=== PATIENT | male | born 1945 | race Two or more races ===

== ENCOUNTER 2020-06-30 11:34 | Inpatient (IN) | payer OTHER ==
[~2020-06-30] VITALS: Ht 177.8 cm; Wt 94.9 kg
[2020-06-30 12:23] LABS: HEMATOCRIT. 35.9 % (42.0-52.0); HEMOGLOBIN. 12.1 g/dL (14.0-18.0); MEAN CORPUSCULAR HEMOGLOBIN 25.4 pg (28.0-32.0); MEAN PLATELET VOLUME 8.3 fl (7.4-10.4); PLATELET 187 x1000/uL (130-400); RED BLOOD CELL COUNT 4.79 mill/uL (4.7-6.1)
[2020-06-30] MEDS ORDERED: PIPERACILLIN/TAZ 3.375G PREMIX 50 ML IV ONE (12:30)
[2020-06-30] MEDS ORDERED: DEXAMETHASONE 10 MG/ML VIAL IV ONE (12:30)
[2020-06-30 12:31] LABS: CHLORIDE 97 mEq/L (98-107)
[2020-06-30 12:34] LABS: PROTHROMBIN TIME 10.9 sec (9.6-11.0)
[2020-06-30 12:35] LABS: ETHANOL BLOOD < 10 mg/dL
[2020-06-30] MEDS ORDERED: SODIUM CHLORIDE 0.9% 250 ML IV ONE (12:45)
[2020-06-30] MEDS ORDERED: ALBUTEROL 6.7GM HFA INHALER ORI ONE (12:45)
[2020-06-30 12:46] LABS: PLATELET ESTIMATE NORMAL
[2020-06-30 16:52] LABS: CLARITY URINE CLEAR (CLEAR); COLOR URINE YELLOW (YELLOW); KETONES URINE TRACE (NEGATIVE); LEUKOCYTE ESTERASE URINE NEGATIVE (NEGATIVE); NITRITE URINE NEGATIVE (NEGATIVE); OCCULT BLOOD URINE 3+ (NEGATIVE); PROTEIN URINE 2+ (NEGATIVE); SPECIFIC GRAVITY URINE 1.019 (1.005-1.030); UROBILINOGEN URINE 0.2 E.U./dL (0.2-1.0)
[2020-06-30 17:13] LABS: *COCAINE SCREEN URINE NEGATIVE (NEGATIVE); CANNABINOID URINE SCREEN NEGATIVE (NEGATIVE); METHADONE URINE SCREEN NEGATIVE (NEGATIVE); OPIATES URINE SCREEN PRESUMTIVE POSITIVE (NEGATIVE); PHENCYCLIDINE URINE SCREEN NEGATIVE (NEGATIVE)
[2020-06-30 17:14] LABS: *AMPHETAMINES SCREEN URINE NEGATIVE (NEGATIVE); *BARBITURATES SCREEN URINE NEGATIVE (NEGATIVE); *BENZODIAZEPINES SCREEN URINE NEGATIVE (NEGATIVE)
[2020-06-30] MEDS ORDERED: HYDROCODONE/ACETAMINOPHEN 5/325MG TABLET PO PRN (20:00)
[2020-06-30] MEDS ORDERED: ALBUTEROL 6.7GM HFA INHALER ORI PRN (20:00)
[2020-06-30] MEDS ORDERED: DIPHENHYDRAMINE 50MG/ML VIAL IV PRN (20:00)
[2020-06-30] MEDS ORDERED: GUAIFENESIN 200MG/10ML SUGAR FREE UDC PO PRN (20:00)
[2020-06-30] MEDS ORDERED: BENZONATATE 200MG CAPSULE PO PRN (20:00)
[2020-06-30] MEDS ORDERED: DEXTROSE 50% WATER 50ML SYRINGE IV PRN (20:00)
[2020-06-30] MEDS ORDERED: ACETAMINOPHEN 325MG TABLET PO PRN (20:00)
[2020-06-30] MEDS ORDERED: MAGNESIUM/ALUMINUM HYDROXIDE/SIMETHICONE 30ML UDC PO PRN (20:00)
[2020-06-30] MEDS ORDERED: ONDANSETRON HCL 4MG/2ML INJ IV PRN (20:00)
[2020-06-30] MEDS: SODIUM CHLORIDE 0.9% 1,000 ML IV SCH (20:38)
[2020-06-30] MEDS ORDERED: CEFTRIAXONE 1 G PREMIX 50 ML IV SCH (21:00)
[2020-06-30] MEDS: BLOOD SUGAR DIAGNOSTIC STRIP TEST SCH (21:25)
[2020-06-30] MEDS: GUAIFENESIN 600MG ER TABLET PO SCH (21:28)
[2020-06-30] MEDS: INSULIN LISPRO 100 UNITS/ML SUBCUT SCH (21:28)
[2020-06-30] MEDS: ENOXAPARIN 40MG/0.4ML SYR SUBCUT SCH (21:28)
[2020-06-30] MEDS: ATORVASTATIN CALCIUM 20MG TABLET PO SCH (21:28)
[2020-06-30] MEDS: FAMOTIDINE 20MG TABLET PO SCH (21:28)
[2020-06-30] MEDS: INSULIN GLARGINE UD 100 UNITS/ML SYR SUBCUT SCH (23:12)
[2020-06-30] MEDS: ERGOCALCIFEROL 50000UNITS CAPSULE PO SCH (23:12)
[2020-07-01 00:38] LABS: CREATINE KINASE 6960 IU/L (39-308)
[2020-07-01] MEDS: AZITHROMYCIN 500 MG in DEXT 5% WATER 250 ML IV SCH (02:00)
[2020-07-01] MEDS: BLOOD SUGAR DIAGNOSTIC STRIP TEST SCH ×4 (06:50→21:00)
[2020-07-01] MEDS: INSULIN LISPRO 100 UNITS/ML SUBCUT SCH ×3 (07:10→18:40)
[2020-07-01] MEDS: DEXAMETHASONE 10 MG/ML VIAL IV SCH (09:55)
[2020-07-01] MEDS: SODIUM CHLORIDE 0.9% 1,000 ML IV SCH (09:56)
[2020-07-01] MEDS: GUAIFENESIN 600MG ER TABLET PO SCH (09:56)
[2020-07-01] MEDS: LOSARTAN POTASSIUM 25 MG TABLET PO SCH ×2 (09:56→21:00)
[2020-07-01 10:58] LABS: HEMATOCRIT. 34.3 % (42.0-52.0); HEMOGLOBIN. 11.7 g/dL (14.0-18.0); MEAN CORPUSCULAR HEMOGLOBIN 25.5 pg (28.0-32.0); MEAN PLATELET VOLUME 8.6 fl (7.4-10.4); PLATELET 181 x1000/uL (130-400); RED BLOOD CELL COUNT 4.58 mill/uL (4.7-6.1); RED CELL DISTRIBUTION WIDTH 16.3 % (11.6-14.6)
[2020-07-01 11:03] LABS: CHLORIDE 102 mEq/L (98-107)
[2020-07-01 11:09] LABS: PHOSPHORUS 3.7 mg/dL (2.5-4.9)
[2020-07-01 11:32] LABS: CREATINE KINASE 5920 IU/L (39-308)
[2020-07-01 15:57] LABS: PLATELET ESTIMATE NORMAL
[2020-07-01 21:30] VITALS: BP 176/71
[2020-07-02] MEDS: ATORVASTATIN CALCIUM 20MG TABLET PO SCH ×2 (00:34→23:29)
[2020-07-02] MEDS: ZOLPIDEM TARTRATE 5MG TABLET PO PRN (00:34)
[2020-07-02] MEDS: GUAIFENESIN 600MG ER TABLET PO SCH ×3 (00:34→23:29)
[2020-07-02] MEDS: ENOXAPARIN 40MG/0.4ML SYR SUBCUT SCH ×2 (00:34→23:30)
[2020-07-02] MEDS: FAMOTIDINE 20MG TABLET PO SCH ×2 (00:34→23:29)
[2020-07-02] MEDS: CEFTRIAXONE 1,000 MG in DEXTROSE 5% WATER 50 ML IV SCH ×2 (01:30→23:28)
[2020-07-02] MEDS: SODIUM CHLORIDE 0.9% 1,000 ML IV SCH ×2 (01:30→14:53)
[2020-07-02] MEDS: INSULIN LISPRO 100 UNITS/ML SUBCUT SCH ×5 (01:31→23:30)
[2020-07-02] MEDS: BLOOD SUGAR DIAGNOSTIC STRIP TEST SCH ×4 (07:28→21:00)
[2020-07-02 08:00] VITALS: BP 140/80
[2020-07-02] MEDS: LOSARTAN POTASSIUM 25 MG TABLET PO SCH ×2 (11:29→23:31)
[2020-07-02] MEDS: DEXAMETHASONE 10 MG/ML VIAL IV SCH (11:29)
[2020-07-02 12:00] VITALS: BP 128/79
[2020-07-02 16:00] VITALS: BP 121/58
[2020-07-02 20:00] VITALS: BP 133/72
[2020-07-02] MEDS ORDERED: LISI10TA5 MT (20:23)
[2020-07-02] MEDS ORDERED: ASPI-1497 MT (20:23)
[2020-07-02] MEDS ORDERED: DORZ10DR17 OP (20:23)
[2020-07-02] MEDS ORDERED: GABA-532 MT (20:23)
[2020-07-02] MEDS ORDERED: ATOR40TA70 MT (20:23)
[2020-07-02] MEDS ORDERED: TIMO5DRO32 EACHEYE (20:23)
[2020-07-02] MEDS ORDERED: FURO20TA4 MT (20:23)
[2020-07-02] MEDS ORDERED: MUPI1OIN4 TP (20:23)
[2020-07-02] MEDS ORDERED: LORA10TA7 MT (20:23)
[2020-07-02] MEDS ORDERED: METF-416 MT (20:23)
[2020-07-02] MEDS ORDERED: SIME80TA15 MT (20:23)
[2020-07-02] MEDS: GABAPENTIN 300MG CAPSULE PO SCH (23:29)
[2020-07-03] VITALS (7 sets, daily range): BP systolic 113–171; BP diastolic 65–84
[2020-07-03] MEDS: SODIUM CHLORIDE 0.9% 1,000 ML IV SCH (01:20)
[2020-07-03] MEDS: AZITHROMYCIN 500 MG in DEXT 5% WATER 250 ML IV SCH (04:01)
[2020-07-03] MEDS: BLOOD SUGAR DIAGNOSTIC STRIP TEST SCH ×3 (07:01→21:00)
[2020-07-03] MEDS: INSULIN LISPRO 100 UNITS/ML SUBCUT SCH ×3 (08:10→21:00)
[2020-07-03] MEDS: DEXAMETHASONE 10 MG/ML VIAL IV SCH (09:00)
[2020-07-03] MEDS: GUAIFENESIN 600MG ER TABLET PO SCH ×2 (10:20→21:31)
[2020-07-03] MEDS: LOSARTAN POTASSIUM 25 MG TABLET PO SCH ×2 (10:20→21:31)
[2020-07-03] MEDS: INSULIN GLARGINE UD 100 UNITS/ML SYR SUBCUT SCH ×2 (10:21→22:00)
[2020-07-03] MEDS: FAMOTIDINE 20MG TABLET PO SCH (21:30)
[2020-07-03] MEDS: ATORVASTATIN CALCIUM 20MG TABLET PO SCH (21:31)
[2020-07-03] MEDS: ZOLPIDEM TARTRATE 5MG TABLET PO PRN (21:31)
[2020-07-03] MEDS: GABAPENTIN 300MG CAPSULE PO SCH (21:31)
[2020-07-03] MEDS: ENOXAPARIN 40MG/0.4ML SYR SUBCUT SCH (21:34)
[2020-07-04] VITALS: BP 132/66
[2020-07-04 04:00] VITALS: BP 123/49
[2020-07-04] MEDS: BLOOD SUGAR DIAGNOSTIC STRIP TEST SCH ×4 (07:40→20:21)
[2020-07-04 08:00] VITALS: BP 150/71
[2020-07-04] MEDS: INSULIN LISPRO 100 UNITS/ML SUBCUT SCH ×4 (08:10→23:46)
[2020-07-04] MEDS: DEXAMETHASONE 10 MG/ML VIAL IV SCH (09:17)
[2020-07-04] MEDS: GUAIFENESIN 600MG ER TABLET PO SCH ×2 (09:17→20:20)
[2020-07-04] MEDS: LOSARTAN POTASSIUM 25 MG TABLET PO SCH ×2 (09:17→20:20)
[2020-07-04 12:00] VITALS: BP 160/74
[2020-07-04] MEDS: ACETAMINOPHEN 325MG TABLET PO PRN (13:15)
[2020-07-04 16:00] VITALS: BP 167/76
[2020-07-04] MEDS: CLONIDINE 0.1MG TABLET PO PRN (18:15)
[2020-07-04 20:00] VITALS: BP 149/71
[2020-07-04] MEDS: GABAPENTIN 300MG CAPSULE PO SCH (20:20)
[2020-07-04] MEDS: FAMOTIDINE 20MG TABLET PO SCH (20:20)
[2020-07-04] MEDS: ATORVASTATIN CALCIUM 20MG TABLET PO SCH (20:20)
[2020-07-04] MEDS: ENOXAPARIN 40MG/0.4ML SYR SUBCUT SCH (20:21)
[2020-07-04] MEDS: INSULIN GLARGINE UD 100 UNITS/ML SYR SUBCUT SCH (23:47)
[2020-07-05] VITALS: BP 164/77
[2020-07-05] MEDS: CLONIDINE 0.1MG TABLET PO PRN ×3 (00:20→16:53)
[2020-07-05 04:00] VITALS: BP 157/89
[2020-07-05] MEDS: BLOOD SUGAR DIAGNOSTIC STRIP TEST SCH ×4 (06:01→21:00)
[2020-07-05] MEDS: INSULIN LISPRO 100 UNITS/ML SUBCUT SCH ×4 (08:10→21:00)
[2020-07-05] MEDS: DEXAMETHASONE 10 MG/ML VIAL IV SCH (09:00)
[2020-07-05] MEDS: GUAIFENESIN 600MG ER TABLET PO SCH ×2 (10:43→23:12)
[2020-07-05] MEDS: LOSARTAN POTASSIUM 25 MG TABLET PO SCH (10:43)
[2020-07-05] MEDS: QUETIAPINE FUMARATE 25MG TABLET PO SCH ×2 (10:44→23:12)
[2020-07-05] MEDS ORDERED: LORAZEPAM 2MG/ML CPJ IV PRN (10:45)
[2020-07-05 16:00] VITALS: BP 170/70
[2020-07-05 20:00] VITALS: BP 152/81
[2020-07-05] MEDS: ENOXAPARIN 40MG/0.4ML SYR SUBCUT SCH (21:00)
[2020-07-05] MEDS: ATORVASTATIN CALCIUM 20MG TABLET PO SCH (23:11)
[2020-07-05] MEDS: LOSARTAN POTASSIUM 50 MG TABLET PO SCH (23:12)
[2020-07-05] MEDS: FAMOTIDINE 20MG TABLET PO SCH (23:12)
[2020-07-05] MEDS: GABAPENTIN 300MG CAPSULE PO SCH (23:14)
[2020-07-05] MEDS: AMLODIPINE 5MG TABLET PO SCH (23:15)
[2020-07-05] MEDS: INSULIN GLARGINE UD 100 UNITS/ML SYR SUBCUT SCH (23:35)
[2020-07-06] VITALS: BP 137/73
[2020-07-06] MEDS: ACETAMINOPHEN 325MG TABLET PO PRN (01:11)
[2020-07-06 04:00] VITALS: BP 116/86
[2020-07-06 06:50] LABS: HEMATOCRIT. 38.4 % (42.0-52.0); HEMOGLOBIN. 12.6 g/dL (14.0-18.0); MEAN CORPUSCULAR HEMOGLOBIN 24.9 pg (28.0-32.0); MEAN CORPUSCULAR VOLUME 75.5 fL (80.0-94.0); MEAN PLATELET VOLUME 8.5 fl (7.4-10.4); PLATELET 157 x1000/uL (130-400); RED BLOOD CELL COUNT 5.08 mill/uL (4.7-6.1); RED CELL DISTRIBUTION WIDTH 16.8 % (11.6-14.6)
[2020-07-06 06:54] LABS: CHLORIDE 119 mEq/L (98-107)
[2020-07-06] MEDS: BLOOD SUGAR DIAGNOSTIC STRIP TEST SCH ×4 (06:54→21:34)
[2020-07-06 07:03] LABS: PHOSPHORUS 4.1 mg/dL (2.5-4.9)
[2020-07-06] MEDS: INSULIN LISPRO 100 UNITS/ML SUBCUT SCH ×4 (08:10→21:34)
[2020-07-06] MEDS: DEXAMETHASONE 10 MG/ML VIAL IV SCH (09:30)
[2020-07-06] MEDS: LOSARTAN POTASSIUM 50 MG TABLET PO SCH ×2 (09:31→21:00)
[2020-07-06] MEDS: GUAIFENESIN 600MG ER TABLET PO SCH ×2 (09:31→21:00)
[2020-07-06] MEDS: AMLODIPINE 5MG TABLET PO SCH ×2 (09:31→21:00)
[2020-07-06] MEDS: QUETIAPINE FUMARATE 25MG TABLET PO SCH ×2 (09:31→21:00)
[2020-07-06 12:00] VITALS: BP 138/61
[2020-07-06 16:00] VITALS: BP_SYST 108; BP_SYST 116; BP_DIAS 58; BP_DIAS 68
[2020-07-06] MEDS: DEXT 5%/0.45% NACL 1000ML 1,000 ML IV SCH (17:44)
[2020-07-06 18:02] LABS: PLATELET ESTIMATE NORMAL
[2020-07-06 20:00] VITALS: BP 123/63
[2020-07-06] MEDS: GABAPENTIN 300MG CAPSULE PO SCH (21:00)
[2020-07-06] MEDS: ATORVASTATIN CALCIUM 20MG TABLET PO SCH (21:00)
[2020-07-06] MEDS: FAMOTIDINE 20MG TABLET PO SCH (21:00)
[2020-07-06] MEDS: ENOXAPARIN 40MG/0.4ML SYR SUBCUT SCH (21:34)
[2020-07-06] MEDS: INSULIN GLARGINE UD 100 UNITS/ML SYR SUBCUT SCH (21:35)
[2020-07-07] VITALS: BP 121/66
[2020-07-07 04:00] VITALS: BP 121/63
[2020-07-07] MEDS: CEFEPIME 1,000 MG in DEXTROSE 5% WATER 50 ML IV SCH ×2 (04:16→21:41)
[2020-07-07] MEDS: BLOOD SUGAR DIAGNOSTIC STRIP TEST SCH ×4 (06:46→21:43)
[2020-07-07] MEDS: ERGOCALCIFEROL 50000UNITS CAPSULE PO SCH (09:37)
[2020-07-07] MEDS: DEXAMETHASONE 10 MG/ML VIAL IV SCH (09:37)
[2020-07-07] MEDS: LOSARTAN POTASSIUM 50 MG TABLET PO SCH ×2 (09:38→21:00)
[2020-07-07] MEDS: QUETIAPINE FUMARATE 25MG TABLET PO SCH ×2 (09:38→21:00)
[2020-07-07] MEDS: GUAIFENESIN 600MG ER TABLET PO SCH ×2 (09:38→21:00)
[2020-07-07] MEDS: AMLODIPINE 5MG TABLET PO SCH ×2 (09:38→21:00)
[2020-07-07] MEDS: INSULIN LISPRO 100 UNITS/ML SUBCUT SCH ×4 (09:39→21:42)
[2020-07-07 12:00] VITALS: BP 123/69
[2020-07-07] MEDS: DEXT 5%/0.45% NACL 1000ML 1,000 ML IV SCH (12:52)
[2020-07-07 16:00] VITALS: BP 134/66
[2020-07-07 20:00] VITALS: BP 131/63
[2020-07-07] MEDS: FAMOTIDINE 20MG TABLET PO SCH (21:00)
[2020-07-07] MEDS: GABAPENTIN 300MG CAPSULE PO SCH (21:00)
[2020-07-07] MEDS: ATORVASTATIN CALCIUM 20MG TABLET PO SCH (21:00)
[2020-07-07] MEDS: INSULIN GLARGINE UD 100 UNITS/ML SYR SUBCUT SCH (21:41)
[2020-07-07] MEDS: ENOXAPARIN 40MG/0.4ML SYR SUBCUT SCH (21:43)
[2020-07-08] VITALS: BP 110/57
[2020-07-08 04:00] VITALS: BP 133/66
[2020-07-08] MEDS: DEXT 5%/0.45% NACL 1000ML 1,000 ML IV SCH (06:15)
[2020-07-08] MEDS: BLOOD SUGAR DIAGNOSTIC STRIP TEST SCH (06:30)
[2020-07-08] MEDS ORDERED: PHENYLEPHRINE 50 MG in DEXT 5% WATER 245 ML IV PRN (09:00)
[2020-07-08] MEDS ORDERED: NOREPINEPHRINE 32 MG in DEXT 5% WATER 218 ML IV PRN (09:00)
[2020-07-08] MEDS ORDERED: MIDAZOLAM HCL 100 MG in DEXT 5% WATER 80 ML IV PRN (09:00)
[2020-07-08] MEDS ORDERED: EPINEPHRINE 10 MG in SODIUM CHLORIDE 0.9% 240 ML IV PRN (09:00)
[2020-07-08] MEDS ORDERED: FENTANYL CITRATE/PF 2,500 MCG in SODIUM CHLORIDE 0.9% 200 ML IV PRN (09:00)
[2020-07-08 09:15] VITALS: BP 90/64
[2020-07-08] MEDS ORDERED: ENOXAPARIN 30MG/0.3ML SYR SUBCUT SCH (21:00)
== END 2020-07-08 09:52 | disposition expired | DRG 871 ==
LOC: ER 11:34 → MICUSO 13:38 → 7WST 07-01 20:11
PROVIDERS: ADMIT Internal Medicine; ATTEND Internal Medicine
PROC: 0BH17EZ Insertion of Endotracheal Airway into Trachea, Via Natural or Artificial Opening (ICD-10-PCS; principal; 2020-07-08)
PROC: 5A1935Z Respiratory Ventilation, Less than 24 Consecutive Hours (ICD-10-PCS; 2020-07-08)
PROC: 5A12012 Performance of Cardiac Output, Single, Manual (ICD-10-PCS; 2020-07-08)
PROC: 5A2204Z Restoration of Cardiac Rhythm, Single (ICD-10-PCS; 2020-07-08)
DX: A41.89 Other specified sepsis (principal); U07.1 COVID-19; J96.01 Acute respiratory failure with hypoxia; J12.82 Pneumonia due to coronavirus disease 2019; G93.41 Metabolic encephalopathy; J15.8 Pneumonia due to other specified bacteria; E87.1 Hypo-osmolality and hyponatremia; M62.82 Rhabdomyolysis; N17.9 Acute kidney failure, unspecified; E78.5 Hyperlipidemia, unspecified; E11.65 Type 2 diabetes mellitus with hyperglycemia; I11.0 Hypertensive heart disease with heart failure; I50.9 Heart failure, unspecified; R65.20 Severe sepsis without septic shock; E78.00 Pure hypercholesterolemia, unspecified; I46.9 Cardiac arrest, cause unspecified; M19.90 Unspecified osteoarthritis, unspecified site; R74.01 Elevation of levels of liver transaminase levels; W01.0XXA Fall on same level from slipping, tripping and stumbling without subsequent striking against object, initial encounter; Z86.73 Personal history of transient ischemic attack (TIA), and cerebral infarction without residual deficits; Z78.9 Other specified health status; Y92.002 Bathroom of unspecified non-institutional (private) residence as the place of occurrence of the external cause; Y93.89 Activity, other specified; Y92.091 Bathroom in other non-institutional residence as the place of occurrence of the external cause; Y99.8 Other external cause status; I49.01 Ventricular fibrillation
CPT/HCPCS: 36415; 71045; 80048; 80053; 80305; 80320; 81003; 82550; 82728; 82962; 83036; 83605; 83615; 83735; 83880; 84100; 84145; 84484; 85025; 86140; 92950; 93005; 93970; 94002; 96365; 99291; J0456; J0692; J0696; J1100; J1650; J1815; J2543; J7050; J7060; U0003; G0480